=== PATIENT | female | born 1965 | race African-American/Black ===

== ENCOUNTER 2018-07-02 13:16 | Emergency (ER) | payer OTHER, MEDICAID ==
[~2018-07-02] VITALS: Ht 162.6 cm; Wt 55.0 kg
[2018-07-02 13:17] VITALS: BP 146/76
[2018-07-02] MEDS ORDERED: CYCLOBENZAPRINE 10 MG TABLET PO ONE (13:30)
[2018-07-02] MEDS ORDERED: KETOROLAC 30 MG/1 ML IM ONE (13:30)
[2018-07-02] MEDS ORDERED: DULO60CA7 PO (13:36)
[2018-07-02] MEDS ORDERED: RIVA20TA PO (13:36)
[2018-07-02] MEDS ORDERED: ATOR10TA9 PO (13:36)
[2018-07-02] MEDS ORDERED: MUSCLE RELAXER (13:37)
[2018-07-02] MEDS ORDERED: KETOROLAC 30 MG/1 ML ONE (13:39)
[2018-07-02] MEDS ORDERED: CYCLOBENZAPRINE 10 MG TABLET ONE (13:39)
[2018-07-02] MEDS ORDERED: HYDROmorphone 1 MG/ML, 1ML IM ONE (14:00)
[2018-07-02] MEDS ORDERED: HYDROmorphone 2 MG/ML, 1ML ONE (14:05)
== END 2018-07-02 14:30 | disposition home or self-care (01) ==
LOC: ED 14:15
DX: S39.012A Strain of muscle, fascia and tendon of lower back, initial encounter (principal); X58.XXXA Exposure to other specified factors, initial encounter; Y93.89 Activity, other specified; Y92.89 Other specified places as the place of occurrence of the external cause; Y99.8 Other external cause status
CPT/HCPCS: 96372; 99284; J1170; J1885